=== PATIENT | female | born 1955 | race Caucasian/White ===

== ENCOUNTER → 2021-04-05 | Outpatient (CLI) | payer MEDICARE ==
[2021-04-06 08:13] LABS: VITAMIN D, 25-HYDROXY 47.9 ng/mL (30.0-100.0)
[2021-04-06 11:13] LABS: RHEUMATOID ARTHRITIS FACTOR <10.0 IU/mL (0.0-13.9)
[2021-04-06 13:14] LABS: ALDOLASE 5.1 U/L (3.3-10.3)
== END ==
LOC: LAB 11:54
PROVIDERS: Internal Medicine
DX: R76.8 Other specified abnormal immunological findings in serum (principal); M25.50 Pain in unspecified joint; D89.89 Other specified disorders involving the immune mechanism, not elsewhere classified; R53.83 Other fatigue; M79.10 Myalgia, unspecified site
CPT/HCPCS: 36415; 82085; 82550; 82728; 83520; 86200; 86431